=== PATIENT | female | born 1980 | race Caucasian/White ===

== ENCOUNTER 2018-01-07 05:58 | Outpatient (CLI) | payer BC ==
[~2018-01-07] VITALS: Ht 180.3 cm; Wt 86.2 kg
[~2018-01-07 05:58] MED LIST: ACHD5005 PO; DCS100C PO; IBP600T1 PO; Ibuprofen PO; PREN-115 PO; SMT80CT PO
== END 2018-01-07 13:16 ==
LOC: PREOP 05:58
PROVIDERS: ATTEND Urology
DX: Z01.818 Encounter for other preprocedural examination (principal); N81.10 Cystocele, unspecified; N36.42 Intrinsic sphincter deficiency (ISD); N39.3 Stress incontinence (female) (male); N32.81 Overactive bladder

== ENCOUNTER 2018-01-12 06:34 | Day surgery (SDC) | payer BC ==
[~2018-01-12] VITALS: Ht 180.3 cm; Wt 86.2 kg
[2018-01-12] MEDS ORDERED: LACTATED RINGERS 1,000 ML IV PRN (06:41)
[2018-01-12] MEDS ORDERED: cefTRIAXone INJECTION 1,000 MG in NS (IVPB) 50 ML IV ONE (06:45)
[2018-01-12 07:05] VITALS: BP 120/81
--- NOTE | 2018-01-12 07:10 | Progress Note-Pre Operative ---
Pre-Operative Progress Note H&P Reviewed The H&P was reviewed, patient examined and no changes noted. Date Seen by Provider: Jan 12, 2018 Time Seen by Provider: 07:10 Date H&P Reviewed: Jan 12, 2018 Time H&P Reviewed: 07:10 Pre-Operative Diagnosis: CYSTOCELE, MELANIE, OAB AND ISD SHIRA GARZA MD Jan 12, 2018 7:10 am
--- NOTE | 2018-01-12 07:12 | Progress Note-Post Operative ---
Post-Operative Progess Note Surgeon (s)/Team Leader/Research Psychologist (s) Surgeon SHIRA GARZA MD Team Leader/Research Psychologist: N/A Pre-Operative Diagnosis CYSTOCELE, MELANIE, OAB AND ISD Post-Operative Diagnosis SAME Procedure & Operative Findings Date of Procedure 01/12/18 Procedure Performed/Findings ANTERIOR REPAIR, PVS AND CYSTOSCOPY Anesthesia Type GENERAL Estimated Blood Loss Estimated blood loss (mL): 50cc Specimens/Packing Specimens Removed N/A Packing: ESTRACE VAGINAL PACK SHIRA GARZA MD Jan 12, 2018 7:12 am
[2018-01-12] MEDS ORDERED: LACTATED RINGERS 1,000 ML IV SCH (07:18)
[2018-01-12] MEDS ORDERED: proPOfol 200 MG/20 ML (DIPRIVAN) VIAL IV ONE (08:42)
[2018-01-12] MEDS ORDERED: ONDANSETRON 4 MG/2 ML (SDV) Z0FRAN ONE (08:42)
[2018-01-12] MEDS ORDERED: fentaNYL INJECTION 100 MCG/2 ML AMP ONE (08:42)
[2018-01-12] MEDS ORDERED: DEXAMETHASONE 10 MG/ML (DECADRON) 1 ML VIAL ONE (08:42)
[2018-01-12] MEDS ORDERED: LIDOCAINE PF 2% 5 ML (XYLOCAINE) VIAL ONE (08:42)
[2018-01-12] MEDS ORDERED: MIDAZOLAM 2 MG/2 ML (VERSED) VIAL ONE (08:42)
[2018-01-12] MEDS ORDERED: SEVOFLURANE (ULTANE) 15 ML INHAL SOLN ONE ×3 (08:42→09:57)
[2018-01-12] MEDS ORDERED: ESTRADIOL VAGINAL CREAM 42.5 GM (ESTRACE) VG ONE (08:52)
[2018-01-12] MEDS ORDERED: LIDOCAINE/EPI 1%-1:200,000 (XYLOCAINE) 10 ML VIAL ONE (08:52)
[2018-01-12] MEDS ORDERED: HYDROmorphone 1 MG/ML (DILAUDID) 1 ML SYRINGE IV PRN (10:30)
[2018-01-12] MEDS ORDERED: morphine INJ 10 MG/ML 1ML (SYR OR VIAL) IVP PRN (10:30)
[2018-01-12] MEDS ORDERED: ONDANSETRON 4 MG/2 ML (SDV) Z0FRAN IVP PRN (10:30)
[2018-01-12 11:10] VITALS: BP 111/71
[2018-01-12 12:15] VITALS: BP 111/71
[2018-01-12] MEDS: HYDROcodone/APAP 10 MG/325 MG (LORTAB) TAB PO PRN ×2 (12:37→19:40)
--- NOTE | 2018-01-12 14:10 | OPERATIVE REPORT ---
DATE OF SERVICE: 01/12/2018 PREOPERATIVE DIAGNOSES: 1. Cystocele. 2. Stress urinary incontinence. 3. Overactive bladder and ISD. POSTOPERATIVE DIAGNOSIS: 1. Cystocele. 2. Stress urinary incontinence. 3. Overactive bladder and ISD. OPERATION PERFORMED: Anterior repair, pubovaginal sling and cystoscopy. SURGEON: Michael Garza MD ANESTHESIA: General. COMPLICATIONS: None. DESCRIPTION OF PROCEDURE: Under satisfactory general anesthesia, the patient in lithotomy extended position, genitalia were prepped and draped in the usual sterile fashion. Keen catheter was inserted. The bladder was drained. Anterior vaginal wall was infiltrated with lidocaine and epinephrine. A midline incision was made vertically in the anterior vaginal wall. Dissection was carried to the fascia that was identified on both sides. Fascia was approximated with interrupted 2-0 Vicryl giving very good support and elevation to the bladder. I passed the Solyx device with pubovaginal sling on both sides using the described technique. The sling was sitting nicely under the mid urethra with no twisting, no tension, passage of a hemostat easily between it and the underlying tissue. I removed the Keen catheter to perform cystoscopy confirming the integrity of the bladder, ureteral orifices and urethra with no foreign bodies. Left the bladder at least half full to perform a manual Valsalva maneuver that was negative. I reinserted the Keen catheter again draining clear fluid. I excised the excess vaginal mucosa and then the mucosa was approximated with a running 2-0 Vicryl. An Estrace vaginal pack was inserted. Urine was clear. Estimated blood loss was 50 mL, none of which was replaced. Needle, sponge and instruments were correct x2. The patient tolerated the procedure and anesthesia well and was sent to recovery room in stable condition. Job ID: [id number] DocumentID: [id number] Dictated Date: 01/12/2018 10:07:45 Cigar Wrapper Date: 01/12/2018 14:09:24 Dictated By: MICHAEL GARZA MD
--- NOTE | 2018-01-12 14:36 | Anesthesia-General Post-Op ---
General Patient Condition Mental Status/LOC: Same as Preop Cardiovascular: Satisfactory Nausea/Vomiting: Absent Respiratory: Satisfactory Pain: Controlled Complications: Absent Post Op Complications Complications None Follow Up Care/Instructions Patient Instructions None needed. Anesthesia/Patient Condition Patient Condition Patient is doing well, no complaints, stable vital signs, no apparent adverse anesthesia problems. No complications reported per nursing. JESSICA BEJARANO CRNA Jan 12, 2018 14:36
[2018-01-12 15:40] VITALS: BP 117/73
[2018-01-12] MEDS ORDERED: MILK OF MAGNESIA 400 MG/5 ML 30 ML UDC PO PRN (16:00)
[2018-01-12] MEDS ORDERED: DOCUSATE SODIUM 100 MG (COLACE) CAP PO ONE (16:32)
[2018-01-12] MEDS: DOCUSATE SODIUM 100 MG (COLACE) CAP PO SCH (16:37)
[2018-01-12 19:45] VITALS: BP 113/60
[2018-01-13] VITALS: BP 115/72
[2018-01-13 03:50] VITALS: BP 108/64
[2018-01-13] MEDS: HYDROcodone/APAP 10 MG/325 MG (LORTAB) TAB PO PRN ×2 (05:55→11:20)
[2018-01-13] MEDS ORDERED: LEVOFLOXACIN 250 MG/50 ML IVPB 50 ML IV SCH (07:18)
--- NOTE | 2018-01-13 07:51 | Progress Note-Urology ---
Progress Note-Urology Progress Notes/Assess & Plan Progress/Assessment & Plan AFEBRILE, VSS. DOING VERY WELL Final Diagnosis CYSTOCELE AND MELANIE SHIRA GARZA MD Jan 13, 2018 7:51 am
[2018-01-13 09:00] VITALS: BP 102/75
--- NOTE | 2018-01-13 09:30 | Discharge Inst-Urology ---
Discharge Inst-Urology Discharge Medications New, Converted, or Re-newed RX: RX on Chart Patient Instructions/Follow Up Plan Please make appointment to been seen in office in 2 weeks. REST till then. No sexual activity Showers, no bath Keep bowels soft and moving, no straining. Use stools softener and or laxatives prn Increase oral fluids for 48 hours and then as needed. Diet as tolerated. If questions or concerns contact your physician Or seek help at emergency department. SHIRA GARZA MD Jan 13, 2018 9:30 am
[2018-01-13] MEDS: DOCUSATE SODIUM 100 MG (COLACE) CAP PO SCH (09:35)
== END 2018-01-13 11:25 | disposition home or self-care (01) ==
LOC: SDC 06:34 → EDSTATUS 09:00 → WS 11:00 → SDC 01-13 11:25
PROVIDERS: ATTEND Urology
DX: N36.42 Intrinsic sphincter deficiency (ISD) (principal); N39.3 Stress incontinence (female) (male); N32.81 Overactive bladder; N81.10 Cystocele, unspecified
CPT/HCPCS: 84703; 87081; 94664

== ENCOUNTER 2020-12-16 19:50 | Emergency (ER) | payer SELFPAY ==
[~2020-12-16] VITALS: Ht 180.3 cm; Wt 72.5 kg
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
[2020-12-16] MEDS ORDERED: IBUPROFEN 800 MG (MOTRIN) TAB PO ONE (20:45)
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
[2020-12-16] MEDS ORDERED: ONDA4TAB11 PO (21:25)
[2020-12-16] MEDS ORDERED: ACETAMINOPHEN 500 MG TAB (TYLENOL) PO ONE (21:30)
[2020-12-16] MEDS ORDERED: ACETAMINOPHEN 500 MG TAB (TYLENOL) ONE (21:32)
[2020-12-16 21:35] VITALS: BP 137/99
== END 2020-12-16 21:35 | disposition home or self-care (01) ==
LOC: EDUNIT# 19:50 → ER 19:52
DX: S06.0X0A Concussion without loss of consciousness, initial encounter (principal); S02.2XXA Fracture of nasal bones, initial encounter for closed fracture; S00.83XA Contusion of other part of head, initial encounter; T74.11XA Adult physical abuse, confirmed, initial encounter; R40.2410 Glasgow coma scale score 13-15, unspecified time; F17.200 Nicotine dependence, unspecified, uncomplicated; Y04.2XXA Assault by strike against or bumped into by another person, initial encounter; Y07.01 Husband, perpetrator of maltreatment and neglect
CPT/HCPCS: 70450; 70486; 72125